=== PATIENT | male | born 1955 | race Caucasian/White ===

== ENCOUNTER → 2016-10-21 | Day surgery (SDC) | payer BC ==
[~2016-10-21] MED LIST: AMBI12.5 PO; ANTARA PO; APREPITANT 40 MG CAP ONE; ASPI81 PO; ATOR10 PO; BUPIVACAINE/EPINEPHRINE 0.25% PF 30 ML VIAL ONE; IRBE150T51 PO; KETOROLAC TROMETHAMINE 30 MG/ML (IVP) VIAL IV PUSH ONE; LACTATED RINGER'S 1000 ML INJ 1,000 ML ONE; MIDAZOLAM HCL 2 MG/2 ML VIAL ONE; ONDANSETRON HCL 4 MG/2 ML VIAL IV PUSH ONE; PROPOFOL 200 MG/20 ML AMP IV ONE; ceFAZolin INJ 1,000 MG VIAL ONE
--- NOTE | 2016-10-21 09:30 | TN ---
cc: BIENVENIDO BUCKNER MD DATE OF SURGERY: 10/21/2016 PREOPERATIVE DIAGNOSIS Right knee torn medial meniscus. POSTOPERATIVE DIAGNOSIS Right knee torn medial meniscus. PROCEDURE Right knee arthroscopy, partial medial meniscectomy. PROCEDURE IN DETAIL Informed consent was obtained the patient taken to the operating room and placed in the supine position on operating room table. He was administered general anesthesia by Dr. Woods of the Anesthesia Department. The right knee was examined under anesthesia, there is no excessive laxity seen. The thigh had a tourniquet applied and was then prepped with Betadine soap followed by Betadine paint. The patient given one gram of Ancef prior to initiation operative procedure. Draping commenced in standard fashion with sterile towel about the tourniquet, sterile down sheet, split sheet, stockinette was applied over the foot calf. This was wrapped with Coban and extremity drape was applied. A time-out was held and confirmed. The table was elevated to maximum height. The tourniquet inflated to 300 mmHg. The leg was allowed to flex over the side of the operating table. An 18 gauge spinal needle was placed in the region of the lateral infrapatellar portal and this region was infiltrated 4 cc of 0.25% Marcaine with epinephrine. Infiltration was also performed into the medial infrapatellar portal region and the trans patellar tendon portal region. A small incision was made with 11-blade in the region of the trans patellar tendon portal. The inflow cannula was placed, a second incision was placed region of the lateral infrapatellar portal. The arthroscopic cannula was placed. Diagnostic arthroscopy commenced medial compartment examined. The anterior and medial portions of the medial meniscus intact. 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 These were relatively mild. As the leg was placed in abduction external rotation against the side post and the posterior compartment was opened an undersurface horizontal cleavage tear was seen. There was some complex meniscal tear components noted as well. Utilizing upbiting basket forceps and Striker meniscal shaver. The inferior portion of the meniscus was debrided. The superior portion was left relatively intact and that debridement concern most of zone I and portion zone II of the medial meniscus. At that time the scope was maneuvered over the intercondylar notch edge of the lateral compartment leg was placed in a figure four position, lateral femoral condyle, lateral meniscus, lateral tibial plateau and popliteus tendon all appeared normal. The knee was then flexed over the side of the operative able anterior posterior cruciate ligaments were examined these appeared normal. The scope was placed in the posterior medial and posterolateral compartments. These appeared normal. The scope was then placed in suprapatellar pouch. The leg was extended and the undersurface patella was examined. There were minimal chondromalacia changes noted on the patella and trochlear groove. There were no pathologic plica seen. At that time the knee was thoroughly irrigated and suctioned all cannulas were removed. Each portals closed with single 4-0 nylon interrupted stitch. Band-Aids, 4x4s Sof-Rol, Mikal wrap were applied to the patient's knee at that time the tourniquet was deflated. Total tourniquet time was 24 minutes. The patient tolerated the procedure well was then taken to the Recovery Room in stable condition at the completion of procedure, sponge count , instrument counts and needle counts were correct. Estimated blood loss was less than 10 cc total of 6000 cc of sterile saline was utilized during this procedure. MD HOWIE Pete/[email or web address] /9:14 AM /9:22 AM
== END | disposition home or self-care (01) ==
LOC: ESDC 06:34
PROVIDERS: ATTEND Orthopaedic Surgery
DX: S83.231A Complex tear of medial meniscus, current injury, right knee, initial encounter (principal)
CPT/HCPCS: 01400; 29881; J0690; J1885; J2250; J2405; J3010; J7120; J8501